=== PATIENT | female | born 1965 | race Two or more races ===

== ENCOUNTER → 2024-02-27 | Outpatient (CLI) | payer MEDICAID, SELFPAY ==
--- NOTE | 2024-02-27 14:20 | XR_ITS ---
Examination: Bone densitometry Date and time of exam:February 27, 2024 1422 hours INDICATIONS: Menopause age 52, personal history osteopenia Technique: Lumbar spine and hip total bone mineralization values of an calculated. Peak reference and age match control results have been displayed. Findings: Lumbar spine total bone mineralization is0.823 gm/cm2. This is 2.0 standard deviations below peak reference. This is 0.6 standard deviations above age-matched controls. Hip total bone mineralization is 0.686 gm/cm2 This is 2.1 standard deviations below peak reference. This is 1.1 standard deviations below age-matched controls Impression: There is osteopenia based on lumbar spine measurements. There is osteoporosis based on hip measurements Lumbar mineralization is increased 1.0% compared with January 19, 2022 Hip mineralization is increase 0.6% compared with January 19, 2022
== END | disposition home or self-care (01) ==
LOC: CDIM 14:07
PROVIDERS: Referring Provider Nurse Practitioner Family; Visit Provider Nurse Practitioner Family
DX: M81.0 Age-related osteoporosis without current pathological fracture (principal); M85.88 Other specified disorders of bone density and structure, other site; C50.412 Malignant neoplasm of upper-outer quadrant of left female breast
CPT/HCPCS: 77080

== ENCOUNTER 2024-06-15 17:33 | Emergency (ER) | payer MEDICAID, SELFPAY ==
[2024-06-15 18:08] VITALS: BP 166/95; PULSE 72; RESP 20; TEMP 36.8; O2SAT 97; BMI 29.2
--- NOTE | 2024-06-15 18:45 | PD.EDABDPN ---
ED Abdominal Pain RME/HPI General Chief Complaint: Abdominal Pain Stated complaint: LEFT UPPER QUADRANT PAIN Time seen by provider: 06/15/24 18:25 Arrival date/time: 06/15/24 17:33 RME / HPI RME / HPI narrative: This section includes all my notes and documentations, including HPI, PE, and ED course. Yonis Rojas MD HPI: 59-year-old female here with a couple week history of severe upper abdominal pain and vomiting, worse in the past couple days. No fever or chills. No other complaints. ROS: All negative except as documented in HPI. Physical Exam: General: Alert and oriented. In obvious pain. Eyes: Conjunctivae and lids clear. ENT: No nasal congestion. Neck: Supple. Heart: RRR. Lungs: No respiratory distress. Good air movement. No rhonchi, wheezing, rales. Abdomen: Soft with epigastric and RUQ tenderness. Normal bowel sounds. No distension. No rebound or guarding. Back: No CVA tenderness. Skin: Warm and dry. Neuro: Alert and oriented X 3. I reviewed all diagnostic test results. My review of the gallbladder US report is cholelithiasis. My review of the abdominal CT report is no acute findings. Blood tests and urine tests unremarkable. At this point, diagnoses include cholelithiasis. Treatment here included IV fluid, Zofran, Reglan, Toradol, and morphine. Significant improvement noted. Recommended outpatient care, including elective surgery. Based on my best medical judgment, made decision no further evaluation or treatment indicated at this time. Patient understands and agrees to the discharge instructions customized and printed, see below. Discharge Instructions from Dr. Rojas: 1. After evaluation, your symptoms are due to gallstone(s).? You need gallbladder to help digest fatty foods. 2. So to prevent future attacks, avoid all fatty and oily and greasy and buttery and dairy foods.? This usually means take out and fast food restaurants. 3. Zofran for nausea/vomiting.? Tylenol with codeine for severe pain.?? 4. See a private doctor on 06/17/2024 for recheck and further care. Ask to review all test results and official radiology reports, to make sure you receive all necessary follow-ups and monitoring. Ask for help seeing a general surgeon to discuss elective surgery. 5. Seek immediate medical care with intolerable pain, fever, or with any concerns. Instrucciones de rui del Dr. Rojas: 1. Despu?s de la evaluaci?n, christy s?ntomas se deben a c?lculos biliares. Necesita la ves?cula biliar para digerir los alimentos grasos. 2. Para prevenir futuros ataques, evite todos los alimentos grasosos, aceitosos, grasosos, con mantequilla y l?cteos. [employer] generalmente implica comida para llevar y restaurantes de comida r?pida. 3. Zofran para n?useas y v?mitos. Tylenol con code?na para el dolor intenso. 4. Consulte con un m?dico particular el 10/13/2024 para deana nueva revisi?n y atenci?n adicional. Solicite la revisi?n de todos los resultados de las pruebas y los informes radiol?gicos oficiales para asegurarse de recibir todos los seguimientos y la monitorizaci?n necesarios. [place] ayuda para consultar con un cirujano general para hablar sobre deana cirug?a electiva. 5. Busque atenci?n m?dica inmediata si presenta dolor insoportable, fiebre o cualquier inquietud. Yonis Rojas MD Related Data Home Medications ?Medication ?Instructions ?Recorded ?Confirmed aspirin 81 mg chewable tablet 81 mg PO QDAY 08/13/19 11/22/20 lisinopril 10 mg tablet 10 mg PO QDAY 02/17/20 11/22/20 nifedipine 30 mg tablet,extended 30 mg PO QDAY 11/22/20 11/22/20 release Previous Rx's ?Medication ?Instructions ?Recorded benzonatate 100 mg capsule 100 mg PO TID #14 caps 10/29/23 ibuprofen 600 mg tablet 600 mg PO Q6H #30 tabs 10/29/23 ondansetron 4 mg disintegrating 4 mg PO Q8H PRN nausea and 10/29/23 tablet vomiting #10 tabs acetaminophen 300 mg-codeine 30 mg 2 tab PO Q8H PRN pain #20 tabs 06/16/24 tablet ondansetron 4 mg disintegrating 4 mg PO TID PRN nausea and 06/16/24 tablet vomiting 30 days #10 tabs Allergies Allergy/AdvReac Type Severity Reaction Status Date / Time No Known Allergies Allergy Verified 06/15/24 17:36 Course Quality Measures none Orders Category Date Time Status Bedside COVID-19 Antigen Test NOW Care 06/15/24 19:00 Active Bedside Influenza A&B Antigen Test NOW Care 06/15/24 19:00 Active Saline [Insert IV] NOW Care 06/15/24 19:00 Active Straight [In and Out Catheter] X1 Care 06/15/24 19:[address] abdomen pelvis wo con Stat Exams 06/15/24 19:01 Completed US gall bladder Stat Exams 06/15/24 19:01 Completed Amylase Stat Lab 06/15/24 19:15 Completed Bilirubin,Direct Stat Lab 06/15/24 19:15 Completed CBC Stat Lab 06/15/24 19:15 Completed CMP [Comprehensive Metabolic Panel] Stat Lab 06/15/24 19:15 Completed Lipase Stat Lab 06/15/24 19:15 Completed Magnesium Stat Lab 06/15/24 19:15 Completed UA, C/S IF [Urinalysis, C/S if Indicated] Stat Lab 06/15/24 23:31 Completed Ketorolac Inj [Toradol Inj] Med 06/15/24 19:00 Discontinued 15 mg IVP X1 ONE Metoclopramide Inj [Reglan Inj] Med 06/15/24 23:02 Discontinued 10 mg IVP X1 ONE Morphine Inj Med 06/15/24 19:00 Discontinued 4 mg IVP X1 ONE Ondansetron Inj [Zofran Inj] Med 06/15/24 19:00 Discontinued 4 mg IV X1 ONE Sodium Chloride 0.9% 1000 ml [Ns] 1,000 ml Med 06/15/24 19:00 Discontinued IV 999 mls/hr Vital Signs Vital signs: Vital Signs Temperature 98.3 F 06/15/24 18:08 Pulse Rate 72 06/15/24 18:08 Respiratory Rate 20 06/15/24 18:08 Blood Pressure 166/95 H 06/15/24 18:08 Pulse Oximetry (%) 97 06/15/24 18:08 Oxygen Delivery Method Room Air 06/15/24 18:08 Abdominal Pain MDM Patient data External records reviewed:: [facility] previous records Clinical information provided by:: patient and family Social determinants that could affect healthcare access:: none Patient has the following chronic illnesses:: History of breast cancer How is presenting disease/condition affected by chronic disease/condition?: uneffected by Evaluation data The following diagnostics were reviewed and interpreted by me:: lab results and radiology exam(s) Lab and/or radiology exams considered but not ordered:: None Interpretation Summary: Cholelithiasis Medications / Prescriptions Medications or Prescriptions considered but not ordered:: None Medication administrations:: Medication Administration History Discontinued Medications Sodium Chloride (Ns) 1,000 mls @ 999 mls/hr IV .Q1H1M ONE Stop: 06/15/24 20:00 Last Infusion: 06/15/24 20:30 Dose: Infused Documented By: Admin: 06/15/24 19:24 Dose: 999 mls/hr Documented By: SF Ketorolac Tromethamine (Ketorolac Inj 30 Mg/Ml Vial) 15 mg IVP X1 ONE Stop: 06/15/24 19:01 Last Admin: 06/15/24 19:23 Dose: 15 mg Documented By: SF Metoclopramide HCl (Metoclopramide Inj 5 Mg/Ml Vial 2 Ml) 10 mg IVP X1 ONE; Protocol Stop: 06/15/24 23:03 Last Admin: 06/15/24 23:09 Dose: 10 mg Documented By: SF Morphine Sulfate (Morphine Sulf Inj 10 Mg/Ml Vial) 4 mg IVP X1 ONE Stop: 06/15/24 19:01 Last Admin: 06/15/24 19:23 Dose: 4 mg Documented By: SF Ondansetron HCl (Ondansetron Inj 2 Mg/Ml Inj 2 Ml) 4 mg IV X1 ONE; Protocol Stop: 06/15/24 19:01 Last Admin: 06/15/24 19:23 Dose: 4 mg Documented By: SF IV fluid and Zofran and Reglan and Toradol and morphine Consultations Consultation(s) initiated? (list below): No Diagnosis Differential diagnosis abdominal pain: abdominal pain, acute appendicitis, calculus of kidney, constipation, diverticulitis, endometriosis, gastroenteritis, pancreatitis, small bowel obstruction and other (Biliary colic) Most likely diagnosis given after review of the tests above:: Biliary colic Admission Indicated Admission indicated?: indicated Explain why admission is indicated or not indicated:: With significant improvement, there was no indication for admission. Admission Request Was there a request for admission?: No Disposition Plan Disposition Plan: Discharge Discharge Attestation Discharge Attestation: The patient and all family members were given an opportunity to ask questions and understood the discharge instructions. Discharge instructions specifically effects, indications for sooner follow up or return to the emergency department, and the expected course of current diagnosis. Patient condition: Stable Discharge Plan Plan Patient Disposition: HOME (Self Care) Prescriptions/Referrals Prescriptions/Med Rec: New acetaminophen-codeine 300-30 mg tablet 2 tab PO Q8H MDD 6 PRN (Reason: pain) Qty: 20 0RF ondansetron 4 mg tablet,disintegrating 4 mg PO TID PRN (Reason: nausea and vomiting) 30 Days Qty: 10 0RF No Action lisinopril 10 mg tablet 10 mg PO QDAY Patient Comments: TAKE 1 TABLET BY MOUTH ONCE DAILY aspirin 81 mg Tablet,Chewable 81 mg PO QDAY nifedipine 30 mg Tablet Extended Release 30 mg PO QDAY benzonatate 100 mg capsule 100 mg PO TID Qty: 14 0RF ibuprofen 600 mg tablet 600 mg PO Q6H Qty: 30 0RF ondansetron 4 mg tablet,disintegrating 4 mg PO Q8H PRN (Reason: nausea and vomiting) Qty: 10 0RF Referrals: Shaniqua Denny MD [Primary Care Provider] - In 1 week Problem List Clinical Impression: Gallstones Patient/Caregiver Discharge Instructions Discharge Activity: activity as tolerated Education Materials: ED Gallstones with Biliary Colic Additional Instructions: Discharge Instructions from Dr. Rojas: 1. After evaluation, your symptoms are due to gallstone(s).? You need gallbladder to help digest fatty foods. 2. So to prevent future attacks, avoid all fatty and oily and greasy and buttery and dairy foods.? This usually means take out and fast food restaurants. 3. Zofran for nausea/vomiting.? Tylenol with codeine for severe pain.?? 4. See a private doctor on 06/17/2024 for recheck and further care. Ask to review all test results and official radiology reports, to make sure you receive all necessary follow-ups and monitoring. Ask for help seeing a general surgeon to discuss elective surgery. 5. Seek immediate medical care with intolerable pain, fever, or with any concerns. Instrucciones de rui del Dr. Rojas: 1. Despu?s de la evaluaci?n, christy s?ntomas se deben a c?lculos biliares. Necesita la ves?cula biliar para digerir los alimentos grasos. 2. Para prevenir futuros ataques, evite todos los alimentos grasosos, aceitosos, grasosos, con mantequilla y l?cteos. [employer] generalmente implica comida para llevar y restaurantes de comida r?pida. 3. Zofran para n?useas y v?mitos. Tylenol con code?na para el dolor intenso. 4. Consulte con un m?dico particular el 10/13/2024 para deana nueva revisi?n y atenci?n adicional. Solicite la revisi?n de todos los resultados de las pruebas y los informes radiol?gicos oficiales para asegurarse de recibir todos los seguimientos y la monitorizaci?n necesarios. [place] ayuda para consultar con un cirujano general para hablar sobre deana cirug?a electiva. 5. Busque atenci?n m?dica inmediata si presenta dolor insoportable, fiebre o cualquier inquietud. Print Language: Beninese Stand Alone Forms: [employer] Award Info., Patient Portal Info Letter
--- NOTE | 2024-06-15 19:01 | XR_ITS ---
Examination: CT abdomen and pelvis without contrast. Coronal 3-D reconstructions. Sagittal 2-D reconstructions. Date and time of exam:June 15, 2024 1008 hours INDICATIONS: Left upper abdominal pain today CTDI: vol (mGy): 8.52 DLP: (mGycm): 456 Technique: Axial images of the abdomen have been obtained, 3 mm slice thickness Intravenous contrast material has not been administered. Low dose protocols were performed. One or more of the following dose reduction techniques were used; automated exposure control, adjustment of the mA and/or KV according to patient size, use of iterative reconstruction technique. Findings: No focal liver or splenic lesion No gallstones Stable 14 mm fat-containing left prostate nodule No renal or ureteral calculi, minimal perinephric stranding No hydronephrosis Normal appendix Colonic diverticulosis Retroverted uterus Suspicious for anterior 32 mm pelvic cyst Bilateral intact Moderate osteopenia IMPRESSION: Minimal perinephric stranding No renal or ureteral calculi, no hydronephrosis Normal appendix Colonic diverticulosis, no diverticulitis Recommend pelvic sonography to confirm 32 mm anterior pelvic cyst
--- NOTE | 2024-06-15 19:01 | XR_ITS ---
Examination: Abdomen sonogram, Limited Date and time of exam: June 15, 2024 2132 hours INDICATIONS: Right upper abdominal pain beginning one month ago Technique: Real-time uribe scale transabdominal sonographic images of the upper abdomen obtained. Findings: Negative for gallstones Gallbladder wall 0.3 cm no edema Common bile duct 0.3 cm Pancreatic head 2.8 cm Liver 12.9 cm no liver lesions Normal hepatopedal portal venous flow Patent IVC IMPRESSION: Cholelithiasis, negative for cholecystitis
[2024-06-15 19:23] LABS: Basophils % (Auto) 0 % (0-2.5); Eosinophils # (Auto) 0.1 Thou/mm3 (0.0-0.5); Eosinophils % (Auto) 1 % (0-10); Hematocrit 39.6 % (36.0-46.0); Hemoglobin 13.1 g/dL (12.0-16.0); Immature Granulocytes % (Auto) 0 % (0-0); Immature Granulocytes Auto 0.04 Thou/mm3 (0.00-0.00); Lymphocytes # (Auto) 2.3 Thou/mm3 (1.0-4.8); Lymphocytes % (Auto) 20 % (10-50); Mean Corpuscular HGB Conc 33.1 g/dl (31.0-37.0); Mean Corpuscular Hemoglobin 30.5 pg (25.0-35.0); Mean Corpuscular Volume 92 fL (80-100); Monocytes % (Auto) 9 % (0-12); Neutrophils # (Auto) 7.8 Thou/mm3 (1.8-7.7); Neutrophils % (Auto) 69 % (37-80); Nucleated Red Blood Cell % 0 /100 WBC (0); Platelet Count 291 Thou/mm3 (140-440); RDW Standard Deviation 48.9 fL (36.4-46.3); White Blood Count 11.3 Thou/mm3 (3.6-11.0)
[2024-06-15] MEDS: ONDANSETRON INJ 2 MG/ML INJ 2 ML 4 MG IV (19:23)
[2024-06-15] MEDS: MORPHINE SULF INJ 10 MG/ML VIAL 4 MG IVP (19:23)
[2024-06-15] MEDS: KETOROLAC INJ 30 MG/ML VIAL 15 MG IVP (19:23)
[2024-06-15] MEDS: SODIUM CHLORIDE 0.9% 1000 ML 1,000 ML 999 ML IV (19:24)
[2024-06-15 20:06] LABS: Alanine Aminotransferase 11 U/L (10-49); Albumin, Serum 4.7 gm/dL (3.4-4.8); Albumin/Globulin Ratio 1.5 (1.2-2.2); Alkaline Phosphatase 88 U/L (46-116); Amylase 88 U/L (30-118); Anion Gap 9 (7-16); Aspartate Amino Transferase 17 U/L (0-34); BUN/Creatinine Ratio 11 Ratio (12-20); Bilirubin,Direct < 0.1 mg/dL (0.0-0.3); Bilirubin,Total 0.2 mg/dL (0.3-1.2); Blood Urea Nitrogen 16 mg/dL (9-23); Calcium 9.8 mg/dL (8.3-10.6); Calcium (Corrected) 9.8 mg/dL (8.5-10.1); Carbon Dioxide 22.2 mMol/L (20.0-31.0); Chloride 108 mMol/L (98-107); Creatinine (Component) 1.4 mg/dL (0.6-1.3); Estimated Creatinine Clearance 37.8 mL/min (>60); Globulin 3.1 gm/dL (2.3-3.5); Glucose 136 mg/dL (74-106); Lipase 40 U/L (12-53); Magnesium 1.9 mg/dL (1.6-2.6); Osmolality,Calculated 280 (275-295); Sodium 139 mMol/L (136-145); Total Protein 7.8 gm/dL (5.7-8.2); eGFR 43 See Note
[2024-06-15] MEDS: METOCLOPRAMIDE INJ 5 MG/ML VIAL 2 ML 10 MG IVP (23:09)
[2024-06-15 23:43] LABS: Collection Type, Urine Clean Catch
[2024-06-15 23:46] LABS: Bilirubin,Urine Negative (Negative); Blood,Urine Negative (Negative); Clarity,Urine Clear (Clear/Hazy); Color,Urine Yellow (Lt Yel-Yel); Culture Indicated,Urine Not Indicated; Glucose, Urine Negative (Negative); Hyaline Casts,Urine < 1 /hpf (0-1); Ketones,Urine Trace (Negative); Leukocyte Esterase,Urine Positive (Negative); Nitrite,Urine Negative (Negative); Protein,Urine 1+ (Neg - Trace); RBC,Urine 10 /hpf (0-3); Specific Gravity,Urine 1.029 (1.001-1.035); Squamous Epithelial Cell,Urine 9 /hpf (0-5); WBC,Urine 3 /hpf (0-5)
[2024-06-15 23:51] VITALS: BP 142/85; PULSE 69; RESP 16; TEMP 36.8; O2SAT 95
[2024-06-16 01:06] VITALS: BP 152/78; PULSE 70; RESP 19; TEMP 36.7; O2SAT 96
== END 2024-06-16 01:07 | disposition home or self-care (01) ==
PROVIDERS: Emergency Provider Emergency Medicine; PCP Family Medicine
DX: K80.20 Calculus of gallbladder without cholecystitis without obstruction (principal)
CPT/HCPCS: 36415; 74176; 76705; 80053; 81001; 82150; 82248; 83690; 83735; 85025; 96361; 96374; 96375; 99284; J1885; J2270; J2405; J2765; J7030

== ENCOUNTER 2024-07-01 14:05 | Outpatient (RCR) | payer MEDICAID, SELFPAY | END 2024-07-09 23:59 | disposition home or self-care (01) | LOC: SCTC 14:05 | PROVIDERS: PCP Family Medicine; Referring Provider Family Medicine; Visit Provider Nurse Practitioner Family | DX: Z08 Encounter for follow-up examination after completed treatment for malignant neoplasm (principal); Z85.3 Personal history of malignant neoplasm of breast; M81.0 Age-related osteoporosis without current pathological fracture; K80.20 Calculus of gallbladder without cholecystitis without obstruction | CPT/HCPCS: 99212; G0463 ==